=== PATIENT | female | born 1995 | race African-American/Black ===

== ENCOUNTER 2018-11-07 11:38 | Emergency (ER) | payer MEDICAID ==
[~2018-11-07] VITALS: Ht 162.6 cm; Wt 54.4 kg
[2018-11-07 11:40] VITALS: BP 118/68
--- NOTE | 2018-11-07 11:40 | NUR ---
ED Nurse Note: PT WAS PICKED UP FROM HOME DUE TO R-SIDED CP WITH N/V & R SIDED ABD PAIN X 2 HRS AGO. PT STATED THAT THE PAIN IN ON THE MIDDLE STERNAL AREA, NO RADIATION AND STARTED 3AM. PT CLAIS THAT SHE HAS HX OF ARRYTHMIAS AND ASTHMA. SEEN BY AFSHIN. WILL CONTINUE TO MONITOR.
[2018-11-07] MEDS ORDERED: DiphenhydrAMINE 50mg/ml Inj IVP ONE (11:45)
[2018-11-07] MEDS ORDERED: Metoclopramide 10mg/2ml Inj IVP ONE (11:45)
[2018-11-07] MEDS ORDERED: fentaNYL 100 mcg/2 mL IV ONE (11:45)
--- NOTE | 2018-11-07 11:48 | Emergency Room Report ---
History of Present Illness General Chief Complaint: Chest Pain Source: Patient, EMS Present Illness HPI The patient presents with right-sided chest pain that began last night. She has also been vomiting. She feels it 10/10 at this time, sharp pressure and radiating somewhat to the side. She is denies vomiting blood or coffee grounds. She believes she is not . Her last period was last week. The patient has a history of asthma but states that her asthma is stable. She has not had to use inhalers and does not hear herself wheezing. She denies palpitations. She denies fevers, chills, productive cough, hemoptysis, edema, calf pain, immobilization, control pills or smoking. She denies dysuria. There is no diarrhea. No melena. Patient is never had pain like this before. She states that the nausea is improved. Allergies: Coded Allergies: No Known Allergies (Unverified , 11/07/18) Patient History Past Medical History: see triage record Social History: Reports: drug use - THC; Denies: smoking Social History Narrative nanny Reviewed Nursing Documentation: PMH: Agreed; PSxH: Agreed Review of Systems All Other Systems: negative except mentioned in HPI Physical Exam Vital Signs Date Time Temp Pulse Resp B/P (MAP) Pulse Ox O2 Delivery O2 Flow Rate FiO2 11/07/18 11:30 98.1 88 18 118/68 (85) 100 Sp02 EP Interpretation: reviewed, normal General Appearance: well appearing, no apparent distress, GCS 15 Head: normocephalic Eyes: bilateral eye normal inspection, bilateral eye PERRL, bilateral eye EOMI ENT: normal pharynx, moist mucus membranes Neck: supple Respiratory: chest non-tender, lungs clear, normal breath sounds Cardiovascular #1: regular rate, rhythm Cardiovascular #2: 2+ radial (R) Gastrointestinal: normal inspection, normal bowel sounds, non tender, no mass, non-distended Genitourinary: no CVA tenderness Musculoskeletal: back normal, gait/station normal, normal range of motion, no calf tenderness, Bro's Sign negative Neurologic: alert, oriented x3, grossly normal Psychiatric: mood/affect normal Skin: normal inspection, warm/dry Medical Decision Making Diagnostic Impression: Primary Impression: Chest pain Qualified Codes: R07.9 - Chest pain, unspecified Additional Impression: Nausea & vomiting Qualified Codes: R11.2 - Nausea with vomiting, unspecified ER Course Patient presents with chest pain and vomiting. Differential includes pneumothorax, costochondritis, muscle strain, pleurisy, pulmonary embolus, pneumonia, viral syndrome amongst others. Evaluation will be with EKG, chest x- ray and labs. Patient will be treated with IV hydration, Reglan, Benadryl and Toradol. Based on vital signs and exam pulmonary embolus is extremely unlikely. EKG without injury. Chest x-ray hyperinflated but no abnormality. Labs with normal white count, CMP normal. Pain now much better. No nausea. Discussed outpatient observation with the patient. She understands that she needs to return if the pain or nausea worsens. No medical emergency apparent at this time. Patient stable for outpatient observation and treatment. Laboratory Tests Test 11/07/18 12:08 White Blood Count 8.2 K/UL (4.8-10.8) Red Blood Count 4.60 M/UL (4.20-5.40) Hemoglobin 13.4 G/DL (12.0-16.0) Hematocrit 40.5 % (37.0-47.0) Mean Corpuscular Volume 88 FL (80-99) Mean Corpuscular Hemoglobin 29.2 PG (27.0-31.0) Mean Corpuscular Hemoglobin Concent 33.2 G/DL (32.0-36.0) Red Cell Distribution Width 11.6 % (11.6-14.8) Platelet Count 246 K/UL (150-450) Mean Platelet Volume 7.1 FL (6.5-10.1) Neutrophils (%) (Auto) 72.1 % (45.0-75.0) Lymphocytes (%) (Auto) 18.4 % (20.0-45.0) L Monocytes (%) (Auto) 4.3 % (1.0-10.0) Eosinophils (%) (Auto) 3.9 % (0.0-3.0) H Basophils (%) (Auto) 1.4 % (0.0-2.0) Prothrombin Time 10.2 SEC (9.30-11.50) Prothrombin Time INR 1.0 (0.9-1.1) PTT 26 SEC (23-33) Urine Color Pale yellow Urine Appearance Clear Urine pH 7 (4.5-8.0) Urine Specific [place] 1.005 (1.005-1.035) Urine Protein Negative (NEGATIVE) Urine Glucose (UA) Negative (NEGATIVE) Urine Ketones Negative (NEGATIVE) Urine Blood Negative (NEGATIVE) Urine Nitrite Positive (NEGATIVE) H Urine Bilirubin Negative (NEGATIVE) Urine Urobilinogen Normal MG/DL (0.0-1.0) Urine Leukocyte Esterase 1+ (NEGATIVE) H Urine RBC 0 /HPF (0 - 2) Urine WBC 0-2 /HPF (0 - 2) Urine Squamous Epithelial Cells Occasional /LPF Urine Bacteria Moderate /HPF (NONE) H Urine HCG, Qualitative Negative (NEGATIVE) Sodium Level 143 MMOL/L (136-145) Potassium Level 4.0 MMOL/L (3.5-5.1) Chloride Level 105 MMOL/L (98-107) Carbon Dioxide Level 30 MMOL/L (21-32) Anion Gap 8 mmol/L (5-15) Blood Urea Nitrogen 14 mg/dL (7-18) Creatinine 1.0 MG/DL (0.55-1.30) Estimate Glomerular Filtration Rate > 60 mL/min (>60) Glucose Level 63 MG/DL (74-106) L Calcium Level 10.2 MG/DL (8.5-10.1) H Total Bilirubin 0.2 MG/DL (0.2-1.0) Aspartate Amino Transferase (AST) 14 U/L (15-37) L Alanine Aminotransferase (ALT) 19 U/L (12-78) Alkaline Phosphatase 65 U/L (46-116) Total Creatine Kinase 96 U/L (26-308) Total Protein 8.1 G/DL (6.4-8.2) Albumin 4.2 G/DL (3.4-5.0) Globulin 3.9 g/dL Albumin/Globulin Ratio 1.1 (1.0-2.7) Lipase 90 U/L (73-393) Urine Opiates Screen Negative (NEGATIVE) Urine Barbiturates Screen Negative (NEGATIVE) Phencyclidine (PCP) Screen Negative (NEGATIVE) Urine Amphetamines Screen Negative (NEGATIVE) Urine Benzodiazepines Screen Negative (NEGATIVE) Urine Cocaine Screen Negative (NEGATIVE) Urine Marijuana (THC) Screen Positive (NEGATIVE) H EKG Diagnostic Results Rate: normal Rhythm: NSR ST Segments: no acute changes Rhythm Strip Diag. Results EP Interpretation: yes Rhythm: NSR, no PVC's, no ectopy Chest X-Ray Diagnostic Results Chest X-Ray Diagnostic Results : Chest X-Ray Ordered: Yes # of Views/Limited/Complete: 1 View Indication: Chest Pain Interpretation: no consolidation, no effusion, no pneumothorax Impression: No acute disease Electronically Signed by: Electronically signed by Yefri Anne MD Last Vital Signs Date Time Temp Pulse Resp B/P (MAP) Pulse Ox O2 Delivery O2 Flow Rate FiO2 11/07/18 15:00 98.0 61 19 104/72 100 Room Air Status: improved Disposition: HOME, SELF-CARE Condition: Improved Scripts Famotidine (PEPCID AC) 20 Mg Tablet 20 MG PO DAILY, #10 TAB Prov: Yefri Anne MD 11/07/18 Tramadol Hcl* (ULTRAM*) 50 Mg Tablet 50 MG ORAL Q6H PRN for For Pain, #6 TAB 0 Refills Prov: Yefri Anne MD 11/07/18 Ondansetron Odt* (ZOFRAN ODT*) 4 Mg Tab.rapdis 4 MG BC EVERY 8 HOURS, #4 TAB 0 Refills Prov: Yefri Anne MD 11/07/18 Yefri Anne MD Nov 07, 2018 11:48
--- NOTE | 2018-11-07 12:13 | NUR ---
ED Nurse Note: radiologic technologist on bedside
[2018-11-07 12:18] LABS: APPEARANCE,URINE CLEAR; BILIRUBIN, URINE NEGATIVE (NEGATIVE); COLOR,URINE PALE YELLOW; GLUCOSE, URINE (UA) NEGATIVE (NEGATIVE); KETONES,URINE NEGATIVE (NEGATIVE); LEUKOCYTE ESTERASE ,URINE 1+ (NEGATIVE); NITRITE,URINE POSITIVE (NEGATIVE); PH,URINE 7 (4.5-8.0); PROTEIN,URINE NEGATIVE (NEGATIVE); UROBILINOGEN,URINE NORMAL MG/DL (0.0-1.0)
[2018-11-07 12:21] LABS: BASOPHILS % (AUTO) 1.4 % (0.0-2.0); EOSINOPHILS % (AUTO) 3.9 % (0.0-3.0); HEMATOCRIT 40.5 % (37.0-47.0); HEMOGLOBIN 13.4 G/DL (12.0-16.0); LYMPHOCYTES % (AUTO) 18.4 % (20.0-45.0); MEAN CORPUSCULAR VOLUME 88 FL (80-99); MONOCYTES % (AUTO) 4.3 % (1.0-10.0); NEUTROPHILS % (AUTO) 72.1 % (45.0-75.0); PLATELET COUNT 246 K/UL (150-450); RED CELL DISTRIBUTION WIDTH 11.6 % (11.6-14.8); WHITE BLOOD COUNT 8.2 K/UL (4.8-10.8)
--- NOTE | 2018-11-07 12:29 | Diagnostic Imaging Report ---
Indication: Dyspnea Comparison: None A single view chest radiograph was obtained. Findings: Cardiomediastinal appearance is within normal limits for age. The lungs are clear. Pulmonary vascularity is appropriate. The diaphragmatic contour is smooth and costophrenic angles are sharp. No pleural effusions are identified. The bones are unremarkable. Impression: No acute findings
[2018-11-07 12:36] LABS: ANION GAP 8 mmol/L (5-15); BLOOD UREA NITROGEN 14 mg/dL (7-18); CALCIUM 10.2 MG/DL (8.5-10.1); CARBON DIOXIDE 30 MMOL/L (21-32); CHLORIDE 105 MMOL/L (98-107); SODIUM 143 MMOL/L (136-145)
[2018-11-07 12:40] LABS: ALANINE AMINOTRANSFERASE 19 U/L (12-78); ALBUMIN 4.2 G/DL (3.4-5.0); ALBUMIN/GLOBULIN RATIO 1.1 (1.0-2.7); ALKALINE PHOSPHATASE 65 U/L (46-116); ASPARTATE AMINO TRANSFERASE 14 U/L (15-37); BILIRUBIN,TOTAL 0.2 MG/DL (0.2-1.0); CREATINE KINASE 96 U/L (26-308)
[2018-11-07] MEDS ORDERED: Ketorolac 30mg Inj IV ONE (13:15)
--- NOTE | 2018-11-07 13:15 | NUR ---
ED Nurse Note: pt reassessed for pain and stated she has 9/10 pain, ermd made aware with new orders and carried out. pt medicateed as ordered and tolerated well.
[2018-11-07 13:30] VITALS: BP 128/76
[2018-11-07] MEDS ORDERED: PROAIR HFA8.5 GM INH (13:58)
[2018-11-07 14:43] VITALS: BP 104/72
[2018-11-07] MEDS ORDERED: ONDANSETRON ODT4 MG BC (14:53)
[2018-11-07] MEDS ORDERED: PEPCID AC20 M2 PO (14:53)
[2018-11-07] MEDS ORDERED: TRAMADOL HCL50 MG ORAL (14:53)
[2018-11-07 15:00] VITALS: BP 104/72
--- NOTE | 2018-11-07 15:00 | NUR ---
ER DISCHARGE NOTE: Patient is cleared to be discharged per ERMD, pt is aox4, on room air, with stable vital signs. pt was given dc and prescription instructions, pt was able to verbalize understanding, pt id band and iv site removed without complications. pt is able to ambulate with steady gait. pt took all belongings.
--- NOTE | 2018-11-10 12:26 | Cardiology Report ---
APPROVED REPORT EKG Measurement Heart [id number] Normal sinus rhythm Cannot rule out Anterior infarct, age undetermined Abnormal ECG
== END 2018-11-07 15:00 | disposition home or self-care (01) ==
LOC: EDBD 11:38 → EMR 12:16
DX: R07.9 Chest pain, unspecified (principal); R11.2 Nausea with vomiting, unspecified
CPT/HCPCS: 36415; 71045; 80053; 80307; 81003; 81025; 82550; 83690; 85025; 85610; 85730; 87086; 87181; 93005; 96361; 96374; 96375; 99284; J1200; J1885; J2765; J3010; S0028